=== PATIENT | male | born 1945 | race Caucasian/White ===

== ENCOUNTER 2017-05-27 13:27 | Emergency (ER) | payer MEDICARE, OTHER ==
[~2017-05-27] VITALS: Ht 172.7 cm; Wt 88.0 kg
[~2017-05-27 13:27] MED LIST: ASPI81 PO; CADU10TA PO; CLOP75 PO; FENT75DI TD; GABA250S PO; PRIN10TA PO; TAMS0.4C67 PO; TOPR50TA PO
[2017-05-27 13:34] VITALS: BP 190/86; PULSE 94; RESP 16; TEMP 97.6; O2SAT 95
[2017-05-27] MEDS ORDERED: SPIR25TA PO (14:47)
[2017-05-27] MEDS ORDERED: LEVO50TA4 PO (14:47)
[2017-05-27] MEDS ORDERED: DOFE500 PO (14:47)
[2017-05-27] MEDS ORDERED: ALPH0.1S LEFT EYE (14:47)
[2017-05-27] MEDS ORDERED: KLOR20TA3 PO (14:47)
[2017-05-27] MEDS ORDERED: ATOR40TA16 PO (14:47)
[2017-05-27] MEDS ORDERED: ZOLP5TAB3 PO (14:47)
[2017-05-27] MEDS ORDERED: GABA300C5 PO (14:47)
[2017-05-27] MEDS ORDERED: FAMO20TA2 PO (14:47)
[2017-05-27] MEDS ORDERED: RANE1000 PO (14:47)
[2017-05-27] MEDS ORDERED: ASPI-516 CHEW (14:47)
[2017-05-27] MEDS ORDERED: PLAV75TA29 PO (14:47)
[2017-05-27] MEDS ORDERED: FURO20TA PO (14:47)
[2017-05-27] MEDS ORDERED: SACU1TAB7 PO (14:47)
[2017-05-27] MEDS ORDERED: CARV25TA PO (14:47)
[2017-05-27] MEDS ORDERED: NITR0.4S SL (14:47)
[2017-05-27] MEDS ORDERED: FERR325T18 PO (14:47)
[2017-05-27] MEDS ORDERED: VITA250C3 CHEW (14:47)
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
[2017-05-27] MEDS ORDERED: PRED20 PO (15:11)
[2017-05-27] MEDS ORDERED: ROBA500T PO (15:11)
[2017-05-27] MEDS ORDERED: TRAM50TA PO (15:11)
== END 2017-05-27 15:25 | disposition home or self-care (01) ==
LOC: PHED 13:27 → PHEFT 15:25
DX: M54.5 Low back pain (principal); G89.29 Other chronic pain; I25.10 Atherosclerotic heart disease of native coronary artery without angina pectoris; Z79.01 Long term (current) use of anticoagulants; Z95.1 Presence of aortocoronary bypass graft
CPT/HCPCS: 99284